=== PATIENT | male | born 1990 | race Caucasian/White ===

== ENCOUNTER 2016-10-22 00:34 | Emergency (ER) | payer OTHER ==
--- NOTE | 2016-10-22 01:29 | PDOC ---
History of Present Illness - General Chief Complaint: Shortness of Breath Stated Complaint: DIFFICULTY BREATHING Time Seen by Provider: 10/22/16 01:21 History Source: Patient Exam Limitations: No Limitations - History of Present Illness Initial Comments: 10/22/16 01:55 25-year-old otherwise healthy male presents to the emergency department with his mother complaining of shortness of breath 2 days ago. Patient says he's been having chest discomfort on deep inspiration but denies any nausea/vomiting , fever/chills, headache, dizziness, lightheadedness, neck pains, dollar pains, urinary symptoms. Patient states this started immediately after working out in the gym for the first time. Timing/Duration: reports: other (x2d) Possible Cause: Yes: no prior episodes Past History - Past Medical History Allergies/Adverse Reactions: Allergies Allergy/AdvReac Type Severity Reaction Status Date / Time No Known Allergies Allergy Verified 07/06/13 18:12 Home Medications: Ambulatory Orders Naproxen [Naprosyn] 500 mg PO BID PRN #20 tablet 07/06/13 Ibuprofen [Motrin] 600 mg PO TID #20 tablet 10/17/14 - Psycho/Social/Smoking Cessation Hx Anxiety: No Suicidal Ideation: No Smoking History: Never smoked Hx Alcohol Use: No Substance Use Type: None Review of Systems - Review of Systems Able to Perform ROS?: Yes Comments:: 10/22/16 01:56 CONSTITUTIONAL: Absent: fever, chills, diaphoresis, generalized weakness, malaise, loss of appetite HEENT: Absent: rhinorrhea, nasal congestion, throat pain, throat swelling, difficulty swallowing, mouth swelling, ear pain, eye pain, visual Changes CARDIOVASCULAR: +pleuritic cp (on deep inspiration) Absent: loss of consciousness, palpitations, irregular heart rate, peripheral edema RESPIRATORY: +shortness of breath Absent: cough, , dyspnea with exertion, orthopnea, wheezing, stridor, hemoptysis GASTROINTESTINAL: Absent: abdominal pain, abdominal distension, nausea, vomiting, diarrhea, constipation, melena, hematochezia GENITOURINARY: Absent: dysuria, frequency, urgency, hesitancy, hematuria, flank pain, genital pain MUSCULOSKELETAL: Absent: myalgia, arthralgia, joint swelling SKIN: Absent: rash, itching, pallor HEMATOLOGIC/IMMUNOLOGIC: Absent: easy bleeding, easy bruising, lymphadenopathy, frequent infections ENDOCRINE: Absent: unexplained weight gain, unexplained weight loss, heat intolerance, cold intolerance NEUROLOGIC: Absent: headache, focal weakness or paresthesias, dizziness, unsteady gait, seizure, mental status changes, bladder or bowel incontinence PSYCHIATRIC: Absent: anxiety, depression, suicidal or homicidal ideation, hallucinations. Is the patient limited Togolese proficient: No *Physical Exam - Physical Exam Comments: 10/22/16 01:56 GENERAL: Well developed, well nourished. Awake and alert. No acute distress. HEENT: Normocephalic, atraumatic. PERRLA, EOMI. No conjunctival pallor. Sclera are non- icteric. Moist mucous membranes. Oropharynx is clear. NECK: Supple. Full ROM. No JVD. Carotid pulses 2+ and symmetric, without bruits. No thyromegaly. No lymphadenopathy. CARDIOVASCULAR: Regular rate and rhythm. No murmurs, rubs, or gallops. Distal pulses are 2+ and symmetric. PULMONARY: No evidence of respiratory distress. Lungs clear to auscultation bilaterally. No wheezing, rales or rhonchi. ABDOMINAL: Soft. Non-tender. Non-distended. No rebound or guarding. No organomegaly. Normoactive bowel sounds. MUSCULOSKELETAL Normal range of motion at all joints. No bony deformities or tenderness. No CVA tenderness. EXTREMITIES: No cyanosis. No clubbing. No edema. No calf tenderness. SKIN: Warm and dry. Normal capillary refill. No rashes. No jaundice. NEUROLOGICAL: Alert, awake, appropriate. Cranial nerves 2-12 intact. No deficits to light touch and temperature in face, upper extremities and lower extremities. No motor deficits in the in face, upper extremities and lower extremities. Normoreflexic in the upper and lower extremities. Normal speech. Toes are down- going bilaterally. Gait is normal without ataxia. PSYCHIATRIC: Cooperative. Good eye contact. Appropriate mood and affect. ED Treatment Course - RADIOLOGY Radiograph Interpretation: 10/22/16 03:18 2v cxr; NAD *DC/Admit/Observation/Transfer Diagnosis at time of Disposition: Muscular pain, Muscle strain - Discharge Dispostion Disposition: HOME Condition at time of disposition: Stable Admit: No - Referrals Referrals: Dorota Prakash MD [Staff Physician] - - Patient Instructions Printed Discharge Instructions: Muscle Strain Additional Instructions: Return to the ER for severe/persistent/worsening symptoms Tylenol/Motrin as needed for pain Follow up with your physician or the one listed on your discharge sheet - Post Discharge Activity Work/School Note: Back to Work
--- NOTE | 2016-10-22 01:39 | PDOC ---
Medical Decision Making - Medical Decision Making 10/22/16 01:39 agree with care from TANYA Nur *DC/Admit/Observation/Transfer Diagnosis at time of Disposition: Muscular pain, Muscle strain - Discharge Dispostion Disposition: HOME Condition at time of disposition: Stable - Referrals Referrals: Dorota Prakash MD [Staff Physician] - - Patient Instructions Printed Discharge Instructions: Muscle Strain Additional Instructions: Return to the ER for severe/persistent/worsening symptoms Tylenol/Motrin as needed for pain Follow up with your physician or the one listed on your discharge sheet - Post Discharge Activity Work/School Note: Back to Work
[2016-10-22 01:41] VITALS: BP 131/75; PULSE 75; TEMP 98.5; BMI 23.3
[2016-10-22] MEDS ORDERED: KETOROLAC TROMETHAMINE 60 MG/2 ML VIAL IM ONE (03:10)
== END 2016-10-22 03:20 | disposition home or self-care (01) ==
LOC: JER 00:34
PROC: 3E0233Z Introduction of Anti-inflammatory into Muscle, Percutaneous Approach (ICD-10-PCS; principal; 2016-10-22)
DX: S29.011A Strain of muscle and tendon of front wall of thorax, initial encounter (principal); R07.89 Other chest pain; X50.0XXA Overexertion from strenuous movement or load, initial encounter; Y93.B9 Activity, other involving muscle strengthening exercises; Y92.39 Other specified sports and athletic area as the place of occurrence of the external cause; Y99.8 Other external cause status
CPT/HCPCS: 71020-TC; 99282-25

== ENCOUNTER 2017-08-17 15:24 | Emergency (ER) | payer OTHER ==
--- NOTE | 2017-08-17 16:06 | PDOC ---
Rapid Medical Evaluation Time Seen by Provider: 08/17/17 16:04 Medical Evaluation: Allergies Allergy/AdvReac Type Severity Reaction Status Date / Time No Known Allergies Allergy Verified 10/22/16 03:20 08/17/17 16:05 The patient presents with a chief complaint of: staple removal I have performed a brief in-person evaluation of this patient. Pertinent physical exam findings: vss, stable I have ordered the following: n/a The patient will proceed to the ED for further evaluation.
[2017-08-17 16:09] VITALS: BP 137/67; PULSE 70; TEMP 98.6; BMI 23.3
--- NOTE | 2017-08-17 16:43 | PDOC ---
Suture Removal/Wound Check HPI - History of Present Illness Chief Complaint: Suture/Staple Removal(Here) Stated Complaint: SUTURE REMOVAL Time Seen by Provider: 08/17/17 16:04 History Source: Yes: Patient Exam Limitations: Yes: No Limitations Treated at: Other ED Date of Last ED visit: 08/08/17 - Previous ED Treatment Type of procedure performed on last visit: Yes: Laceration Repair Tetanus Immunization: Yes: Given at last ED visit Antibiotics Prescribed: No Past History - Past Medical History Allergies/Adverse Reactions: Allergies Allergy/AdvReac Type Severity Reaction Status Date / Time No Known Allergies Allergy Verified 08/17/17 16:06 Home Medications: Ambulatory Orders NK [No Known Home Medication] 10/22/16 - Surgical History Abdominal Surgery: Yes (hernia repair) - Suicide/Smoking/Psychosocial Hx Smoking History: Never smoked Hx Alcohol Use: No Substance Use Type: None Suture Removal/Wound Check PE - Physical Exam Laceration/Wound Check Symptoms: reports: None Current Severity Level: None Maximum Severity Level: None Pain Localization: None Location of Laceration/Wound: left: Head (occiput) Pain Radiation: None *Review of Systems - Review of Systems Able to Perform ROS?: Yes All Other Systems: Reviewed and Negative Medical Decision Making - Medical Decision Making 08/17/17 16:41 A/P: 26-year-old male without significant past medical history who sustained head trauma 10 days ago and was seen at [facility]. At that time 4 narendra were placed in the left occipitoparietal region. Wound well approximated. No erythema, discharge or drainage noted. 4 narendra removed without incident Patient tolerated well *DC/Admit/Observation/Transfer Diagnosis at time of Disposition: Removal of narendra - Discharge Dispostion Disposition: HOME Condition at time of disposition: Stable Admit: No - Referrals - Patient Instructions Printed Discharge Instructions: DI for Suture Removal - Post Discharge Activity
== END 2017-08-17 16:44 | disposition home or self-care (01) ==
LOC: JERFT 15:24
DX: Z48.02 Encounter for removal of sutures (principal)
CPT/HCPCS: 99281-25

== ENCOUNTER 2018-11-13 21:50 | Emergency (ER) | payer OTHER ==
[2018-11-13 21:58] VITALS: BMI 23.8
--- NOTE | 2018-11-14 01:26 | PDOC ---
History of Present Illness - General Chief Complaint: Rash Stated Complaint: BODY HURT Time Seen by Provider: 11/13/18 22:07 History Source: Patient Exam Limitations: No Limitations - History of Present Illness Initial Comments: 11/14/18 01:20 Patient is a 27-year-old male with no past medical history here with rash to the scrotal area 1 month. States he had a rash to the right scrotum which was itchy but eventually resolved. Two days ago he noticed more rash to the left side scrotal area and so became concerned and is here for evaluation. States rash is a little itchy. He has no pain to the testicle or scrotum, no redness, no fever, chills. PMHX: As above PSOCHX: occ beer, neg cig, neg drug ALL: NKDA GENERAL/CONSTITUTIONAL: No fever or chills. No weakness. No weight change. HEAD, EYES, EARS, NOSE AND THROAT: No change in vision. No ear pain or discharge. No sore throat. CARDIOVASCULAR: No chest pain or shortness of breath. RESPIRATORY: No cough, wheezing, or hemoptysis. GASTROINTESTINAL: No nausea, vomiting, diarrhea or constipation. No rectal bleeding. GENITOURINARY: No dysuria, frequency, or change in urination. MUSCULOSKELETAL: No joint or muscle swelling or pain. No neck or back pain. SKIN AND BREASTS: (+) rash (-) easy bruising. NEUROLOGIC: No headache, vertigo, loss of consciousness, or loss of sensation. PSYCHIATRIC: No depression or anxiety. ENDOCRINE: No increased thirst. No abnormal weight change. HEMATOLOGIC/LYMPHATIC: No anemia, easy bleeding, or history of blood clots. ALLERGIC/IMMUNOLOGIC: No hives or skin allergy. No latex allergy. GENERAL: The patient is awake, alert, and fully oriented, in no acute distress. HEAD: Normal with no signs of trauma. EYES: Pupils equal, round and reactive to light, extraocular movements intact, sclera anicteric, conjunctiva clear. ENT: Ears normal, nares patent, oropharynx clear without exudates. Moist mucous membranes. NECK: Normal range of motion, supple without lymphadenopathy, JVD, or masses. LUNGS: Breath sounds equal, clear to auscultation bilaterally. No wheezes, and no crackles. HEART: Regular rate and rhythm, normal S1 and S2 without murmur, rub. ABDOMEN: Soft, nontender, normoactive bowel sounds. No guarding, no rebound. No masses. EXTREMITIES: Normal range of motion, no edema. No clubbing or cyanosis. No cords, erythema, or tenderness. NEUROLOGICAL: Cranial nerves II through XII grossly intact. Normal speech, normal gait. PSYCH: Normal mood, normal affect. SKIN: Warm, Dry, normal turgor, anular, raised rash to b/l scrotal, no erythema , no tenderness. Past History - Past Medical History Allergies/Adverse Reactions: Allergies Allergy/AdvReac Type Severity Reaction Status Date / Time No Known Allergies Allergy Verified 08/17/17 16:06 Home Medications: Ambulatory Orders Oxiconazole Nitrate [Oxistat] 60 gm TP BID #1 cream..g. 11/14/18 - Surgical History Abdominal Surgery: Yes (hernia repair) - Suicide/Smoking/Psychosocial Hx Smoking History: Never smoked Information on smoking cessation initiated: No Hx Alcohol Use: Yes (Social) Drug/Substance Use Hx: No Substance Use Type: None *Physical Exam - Vital Signs Last Vital Signs Temp Pulse Resp BP Pulse Ox 98.2 F 57 L 20 132/87 97 11/13/18 21:54 11/13/18 21:54 11/13/18 21:54 11/13/18 21:54 11/13/18 21:54 Medical Decision Making - Medical Decision Making 11/14/18 01:20 Patient is a 27-year-old male with no past medical history here with rash to the scrotal area 1 month. States he had a rash to the right scrotum which was itchy but eventually resolved. Two days ago he noticed more rash to the left side scrotal area and so became concerned and is here for evaluation. States rash is a little itchy. He has no pain to the testicle or scrotum, no redness, no fever, chills. Symptoms consistent with tinea cruris Rx Oxisat Instructed patient to buy Tinactin powder and uses daily. I discussed the physical exam findings, ancillary test results and final diagnoses with the patient. I answered all of the patient's questions. The patient was satisfied with the care received and felt comfortable with the discharge plan and treatment plan. The Patient agrees to follow up with the primary care physician within 24-72 hours. 11/14/18 05:09 *DC/Admit/Observation/Transfer Diagnosis at time of Disposition: Tinea cruris - Discharge Dispostion Disposition: HOME Condition at time of disposition: Stable - Prescriptions Prescriptions: Oxiconazole Nitrate [Oxistat] 60 gm TP BID #1 cream..g. - Referrals - Patient Instructions Printed Discharge Instructions: DI for Jock Itch Additional Instructions: Your Discharge Instructions: You must call primary care physician within 24 hours to arrange follow-up. Return to the Emergency Department with any new, persistent or worsening symptoms, for fever, chills, SOB, dizziness or any other concerning changes that may occur. He may also use Tinactin [id number] powder. - Post Discharge Activity
[2018-11-14 01:53] VITALS: BP 134/84; PULSE 54; TEMP 98.6
== END 2018-11-14 01:51 | disposition home or self-care (01) ==
LOC: JER 21:50
DX: B35.6 Tinea cruris (principal)
CPT/HCPCS: 99281-25